=== PATIENT | female | born 1995 | race African-American/Black ===

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

== ENCOUNTER 2017-05-24 23:19 | Emergency (ER) | payer MEDICAID, OTHER ==
[~2017-05-24] VITALS: Ht 167.6 cm; Wt 124.7 kg
[2017-05-24 23:25] VITALS: BP 140/67
--- NOTE | 2017-05-24 23:58 | NUR ---
CALLED PT IN [place]. PER ADMITTING, PT STEPPED OUT. WILL FOLLOW UP.
--- NOTE | 2017-05-25 00:18 | NUR ---
CALLED PT NAME X3. PT NOT IN WAITING ROOM.
--- NOTE | 2017-05-25 00:45 | NUR ---
CALLED PT NAME X3 IN WAITING ROOM. PER ADMITTING PT NEVER RETURNED.
== END 2017-05-25 00:48 | disposition left against medical advice (07) ==
LOC: ER 23:19
DX: M79.601 Pain in right arm (principal); N64.4 Mastodynia; Z53.21 Procedure and treatment not carried out due to patient leaving prior to being seen by health care provider
CPT/HCPCS: A4606; Z7610

== ENCOUNTER 2018-04-13 22:24 | Emergency (ER) | payer MEDICAID, OTHER ==
[~2018-04-13] VITALS: Ht 170.2 cm; Wt 131.5 kg
--- NOTE | 2018-04-13 23:25 | NUR ---
Pelvic exam done at the bedside by Antony Manzanares PA-C.
[2018-04-13 23:34] LABS: APPEARANCE,URINE Clear (CLEAR); BILIRUBIN,URINE Negative (NEGATIVE); BLOOD, URINE Negative Ery/uL (NEGATIVE); COLOR,URINE Yellow (YELLOW); KETONES,URINE Negative (NEGATIVE); LEUKOCYTE ESTERASE ,URINE Negative (NEGATIVE); NITRITE, URINE Negative (NEGATIVE); PH,URINE 5.5 (5.0-8.0); PROTEIN,URINE Negative (NEGATIVE); UGLUCOSE Negative (NEGATIVE); UROBILINOGEN,URINE 0.2 EU/dL (0.2)
[2018-04-14] MEDS ORDERED: IBUPROFEN 400 MG TABLET ONE (00:04)
--- NOTE | 2018-04-14 00:08 | NUR ---
CALLED RE: US. TECH TO ARRIVED SHORTLY.
--- NOTE | 2018-04-14 00:29 | NUR ---
US IN PROGRESS AT THE BEDSIDE.
[2018-04-14] MEDS ORDERED: IBUPROFEN 400 MG TABLET PO ONE (00:30)
--- NOTE | 2018-04-14 01:30 | NUR ---
CALLED ROSEMARIE RE: US READ. PROBLEM WITH UPLOAD.
[2018-04-14 01:40] VITALS: BP 132/85
--- NOTE | 2018-04-14 01:53 | NUR ---
TERESITA ABRAHAM. AWARE.
== END 2018-04-14 01:53 | disposition left against medical advice (07) ==
LOC: ER 22:28
DX: R10.2 Pelvic and perineal pain (principal)
CPT/HCPCS: 76856-TC; 81000-TC; 84703-TC; 87081-TC

== ENCOUNTER 2020-03-12 23:04 | Emergency (ER) | payer OTHER ==
[~2020-03-12] VITALS: Ht 170.2 cm; Wt 154.2 kg
--- NOTE | 2020-03-12 23:15 | NUR ---
PT BIBSELF C/O CP X2 DAYS AGO THAT WORSENED TODAY. PT AAOX4. PT BREATHING EVENLY AND UNLABORED. PT STATES SHE ONLY FEELS PAIN WHEN SHE TAKES "A DEEP BREATH IN". PT DENIES THAT THE PAIN RADIATES. PT SKIN WARM, DRY, AND INTACT. PT ATTACHED TO SONOGRAM TECHNICIAN AND POX. PT GIVEN BLANKET AND CALL LIGHT WITHIN REACH.
--- NOTE | 2020-03-12 23:20 | NUR ---
PER DR: DO NOT INSERT IV LINE
[2020-03-12] MEDS ORDERED: HYDROCODONE/APAP 5/325MG TABLET ONE (23:36)
[2020-03-12] MEDS ORDERED: IBUPROFEN 600 MG TABLET ONE (23:36)
[2020-03-12] MEDS ORDERED: ONDANSETRON 4 MG TAB.RAPDIS ONE (23:37)
--- NOTE | 2020-03-12 23:41 | NUR ---
LAB AT BEDSIDE
--- NOTE | 2020-03-12 23:52 | NUR ---
XRAY AT BEDSIDE
[2020-03-13] MEDS ORDERED: IBUP-1953 PO
[2020-03-13] MEDS ORDERED: ONDANSETRON 4 MG TAB.RAPDIS SL ONE
[2020-03-13] MEDS ORDERED: HYDR-3976 GT
[2020-03-13] MEDS ORDERED: IBUPROFEN 600 MG TABLET PO ONE
[2020-03-13] MEDS ORDERED: ONDA4TAB11 PO
[2020-03-13] MEDS ORDERED: HYDROCODONE/APAP 5/325MG TABLET PO ONE
[2020-03-13 00:04] LABS: BASOPHILS % (AUTO) 0.6 % (0.0-2.0); EOSINOPHILS % (AUTO) 1.2 % (0.0-6.0); HEMATOCRIT 36 % (33-45); HEMOGLOBIN 11.4 g/dL (11.5-14.8); LYMPHOCYTES # (AUTO) 2.3 /CMM (0.8-4.8); LYMPHOCYTES % (AUTO) 31.8 % (20.0-44.0); MEAN CORPUSCULAR HGB CONC 32 g/dl (31.0-36.0); MEAN CORPUSCULAR VOLUME 72 fL (82-100); MONOCYTES # (AUTO) 0.4 /CMM (0.1-1.30); MONOCYTES % (AUTO) 5.7 % (2.0-12.0); NEUTROPHILS # (AUTO) 4.4 /CMM (1.8-8.9); NEUTROPHILS % (AUTO) 60.7 % (43.0-81.0); PLATELET COUNT (AUTO) 285 /CMM (150-450); WHITE BLOOD COUNT (AUTO) 7.2 K/uL (4.3-11.0)
[2020-03-13 00:19] LABS: CARBON DIOXIDE 26 mmol/L (21-32); CHLORIDE 106 mmol/L (98-107); CREATININE 0.9 mg/dL (0.6-1.3); GLUCOSE 89 mg/dL (74-106); POTASSIUM 3.7 mmol/L (3.5-5.1); SODIUM SERUM 142 mmol/L (136-145); UREA NITROGEN, BLOOD 13 mg/dL (7-18)
[2020-03-13 00:38] LABS: ALANINE AMINOTRANSFERASE 20 U/L (12-78); ALBUMIN 3.2 g/dL (3.4-5.0); ALKALINE PHOSPHATASE 83 U/L (46-116); ASPARTATE AMINOTRANSFERASE 11 U/L (15-37); B-TYPE NATRIURETIC PEPTIDE 78 PG/ML (0-125); BILIRUBIN,DIRECT 0.1 mg/dL (0.0-0.2); BILIRUBIN,TOTAL 0.4 mg/dL (0.2-1.0); TOTAL PROTEIN, SERUM 7.2 g/dL (6.4-8.2)
[2020-03-13] MEDS ORDERED: LORAZEPAM 1 MG TABLET PO ONE (01:00)
[2020-03-13] MEDS ORDERED: HYDROCODONE/APAP 7.5/325MG 1 EACH TABLET PO ONE (01:00)
[2020-03-13] MEDS ORDERED: LORAZEPAM 1 MG TABLET ONE (01:02)
[2020-03-13] MEDS ORDERED: HYDROCODONE/APAP 5/325MG TABLET ONE (01:08)
[2020-03-13 01:23] VITALS: BP 139/76
--- NOTE | 2020-03-13 01:33 | NUR ---
Patient discharged to home in stable condition. Written and verbal after care instructions given. Patient verbalizes understanding of instruction. Pt ambulatory with a steady gait
== END 2020-03-13 01:32 | disposition home or self-care (01) ==
LOC: ER 23:07
DX: R07.89 Other chest pain (principal); M54.6 Pain in thoracic spine; E66.01 Morbid (severe) obesity due to excess calories; Z68.43 Body mass index [BMI] 50.0-59.9, adult; Z79.899 Other long term (current) drug therapy
CPT/HCPCS: 36415; 71045; 80048; 80076; 83880; 84484; 85025; 93005; 99285; Q0162

== ENCOUNTER 2021-12-05 18:46 | Emergency (ER) | payer OTHER ==
[~2021-12-05] VITALS: Ht 167.6 cm; Wt 155.1 kg
[~2021-12-05 18:46] MED LIST: HYDR-3976 GT; IBUP-1953 PO; ONDA4TAB11 PO
--- NOTE | 2021-12-05 19:10 | NUR ---
BIBS C/O L sided chest pain intermittent for 5 days, also c/o BLE pain x 3 weeks. AMBULATORY, PLACED ON BED, AAOX4, ATTACHED TO MONITOR SHOWS NORMAL SINUS RHYTHM NE-85, SATURATING AT 99%.
--- NOTE | 2021-12-05 19:55 | NUR ---
X-RAY TECH AT BEDSIDE
--- NOTE | 2021-12-05 19:58 | NUR ---
URINE SAMPLE SENT TO LAB
[2021-12-05] MEDS ORDERED: KETOROLAC TROMETHAMINE INJ 60 MG/2 ML VIAL IM ONE (20:00)
[2021-12-05] MEDS ORDERED: KETOROLAC TROMETHAMINE INJ 30 MG/ML VIAL ONE (20:29)
[2021-12-05] MEDS ORDERED: IBUP-1955 PO (21:10)
--- NOTE | 2021-12-05 21:20 | NUR ---
Patient discharged to home in stable condition. Written and verbal after care instructions given. Patient verbalizes understanding of instruction.
[2021-12-05 21:24] VITALS: BP 146/95
== END 2021-12-05 21:20 | disposition home or self-care (01) ==
LOC: ER 18:48
DX: R07.89 Other chest pain (principal); Z79.899 Other long term (current) drug therapy
CPT/HCPCS: 99285; 71045; 96372; 93005; 84703; J1885

== ENCOUNTER 2022-10-03 22:43 | Emergency (ER) | payer OTHER ==
[~2022-10-03] VITALS: Ht 167.6 cm; Wt 135.2 kg
[~2022-10-03 22:43] MED LIST changes: +IBUP-1955 PO
[2022-10-03 22:50] VITALS: BP 131/65; TEMP 98.3; O2SAT 100
[2022-10-03 23:14] LABS: APPEARANCE,URINE CLEAR (CLEAR); BILIRUBIN,URINE NEGATIVE (NEGATIVE); BLOOD, URINE NEGATIVE Ery/uL (NEGATIVE); COLOR,URINE YELLOW (YELLOW); KETONES,URINE TRACE mg/dL (NEGATIVE); LEUKOCYTE ESTERASE ,URINE NEGATIVE (NEGATIVE); NITRITE, URINE NEGATIVE (NEGATIVE); PH,URINE 5.5 (5.0-8.0); PREGNANCY TEST URINE QUAL NEGATIVE (NEGATIVE); PROTEIN,URINE NEGATIVE (NEGATIVE); UGLUCOSE NEGATIVE (NEGATIVE); UROBILINOGEN,URINE 0.2 EU/dL (0.2)
[2022-10-03] MEDS ORDERED: NABU-141 PO (23:31)
== END 2022-10-04 01:19 | disposition home or self-care (01) ==
LOC: ER 22:46
DX: D25.9 Leiomyoma of uterus, unspecified (principal); R10.2 Pelvic and perineal pain
CPT/HCPCS: 76856-TC; 84703-TC

== ENCOUNTER 2023-01-19 01:19 | Emergency (ER) | payer OTHER ==
[~2023-01-19] VITALS: Ht 167.6 cm; Wt 141.5 kg
[~2023-01-19 01:19] MED LIST changes: +NABU-141 PO
[2023-01-19 02:37] VITALS: BP 143/91; TEMP 97.5; O2SAT 98
[2023-01-19] MEDS ORDERED: GUAIFENESIN/CODEINE 10 ML UDC PO PRN (03:00)
[2023-01-19] MEDS ORDERED: BENZONATATE 100 MG CAPSULE PO PRN (03:00)
[2023-01-19] MEDS ORDERED: GUAI1TBM19 PO (03:03)
[2023-01-19] MEDS ORDERED: BENZ-13 PO (03:03)
[2023-01-19] MEDS ORDERED: BENZONATATE 100 MG CAPSULE PO ONE (03:08)
[2023-01-19] MEDS ORDERED: GUAIFENESIN/CODEINE 10 ML UDC ONE (03:08)
== END 2023-01-19 03:16 | disposition home or self-care (01) ==
LOC: ER 01:21
DX: J06.9 Acute upper respiratory infection, unspecified (principal); R05.9 Cough, unspecified

== ENCOUNTER 2023-11-18 21:51 | Emergency (ER) | payer OTHER ==
[~2023-11-18] VITALS: Ht 167.6 cm; Wt 146.5 kg
[~2023-11-18 21:51] MED LIST changes: +BENZ-13 PO; +GUAI1TBM19 PO
[2023-11-18] MEDS ORDERED: IBUPROFEN 400 MG TABLET ONE (22:59)
[2023-11-18] MEDS: IBUPROFEN 400 MG TABLET PO ONE (23:03)
[2023-11-19] MEDS ORDERED: IBUP-1955 PO (01:40)
[2023-11-19 01:43] VITALS: BP 128/76; TEMP 98.1; O2SAT 100
== END 2023-11-19 01:44 | disposition home or self-care (01) ==
LOC: ER 22:02
DX: S16.1XXA Strain of muscle, fascia and tendon at neck level, initial encounter (principal); S39.012A Strain of muscle, fascia and tendon of lower back, initial encounter; Z98.890 Other specified postprocedural states; W01.0XXA Fall on same level from slipping, tripping and stumbling without subsequent striking against object, initial encounter; Y93.89 Activity, other specified; Y92.89 Other specified places as the place of occurrence of the external cause; Y99.8 Other external cause status
CPT/HCPCS: 70450-TC; 72125-TC; 72131-TC

== ENCOUNTER 2023-11-23 22:42 | Emergency (ER) | payer OTHER | END 2023-11-24 02:59 | disposition left against medical advice (07) | LOC: ER 22:59 | DX: M54.2 Cervicalgia (principal); M54.9 Dorsalgia, unspecified; Z53.21 Procedure and treatment not carried out due to patient leaving prior to being seen by health care provider ==

== ENCOUNTER 2023-11-24 22:12 | Emergency (ER) | payer OTHER ==
[~2023-11-24] VITALS: Ht 167.6 cm; Wt 145.3 kg
[2023-11-25] MEDS ORDERED: HYDROCODONE/APAP 5/325MG TABLET ONE (00:10)
[2023-11-25] MEDS: HYDROCODONE/APAP 5/325MG TABLET PO ONE (00:10)
[2023-11-25 02:38] VITALS: BP 124/78; TEMP 98.1; O2SAT 98
== END 2023-11-25 02:39 | disposition home or self-care (01) ==
LOC: ER 22:15
DX: S16.1XXA Strain of muscle, fascia and tendon at neck level, initial encounter (principal); S39.012A Strain of muscle, fascia and tendon of lower back, initial encounter; S80.01XA Contusion of right knee, initial encounter; Z79.899 Other long term (current) drug therapy; V89.2XXA Person injured in unspecified motor-vehicle accident, traffic, initial encounter; Y93.89 Activity, other specified; Y92.410 Unspecified street and highway as the place of occurrence of the external cause; Y99.8 Other external cause status
CPT/HCPCS: 99284; 72125; 73564; 72131; L0172